=== PATIENT | female | born 1970 | race Caucasian/White ===

== ENCOUNTER 2021-06-24 16:08 | Emergency (ER) | payer SELFPAY ==
[2021-06-24 16:15] VITALS: BP 116/81; PULSE 74; TEMP 98.1; BMI 30.4
[2021-06-24] MEDS ORDERED: DIPHTH,PERTUSS(ACELL),TET 0.5 ML DISP.SYRIN IM ONE ×2 (17:31→17:37)
[2021-06-24] MEDS ORDERED: LIDOCAINE 5% TOPICAL PATCH TP ONE (17:31)
[2021-06-24] MEDS ORDERED: ACETAMINOPHEN 325 MG TABLET (FP) PO ONE (17:31)
[2021-06-24] MEDS ORDERED: LIDOCAINE 5% TOPICAL PATCH ONE (17:34)
[2021-06-24] MEDS ORDERED: ACETAMINOPHEN 325 MG TABLET (FP) ONE (17:34)
== END 2021-06-24 19:00 | disposition home or self-care (01) ==
LOC: JER 16:08
PROC: 3E0234Z Introduction of Serum, Toxoid and Vaccine into Muscle, Percutaneous Approach (ICD-10-PCS; principal; 2021-06-24)
DX: M25.561 Pain in right knee (principal); M25.532 Pain in left wrist; M54.5 Low back pain; W10.8XXA Fall (on) (from) other stairs and steps, initial encounter; Y92.018 Other place in single-family (private) house as the place of occurrence of the external cause
CPT/HCPCS: 72100-TC-FY; 73110-TC-LT-FY; 73130-TC-LT-FY; 73562-TC-RT-FY; 90715; 99285-25